=== PATIENT | male | born 1965 | race African-American/Black ===

== ENCOUNTER 2019-03-19 22:16 | Emergency (ER) | payer MEDICAID ==
[~2019-03-19] VITALS: Ht 180.3 cm; Wt 106.0 kg
[2019-03-19 23:05] VITALS: BP 158/105
== END 2019-03-20 03:38 | disposition home or self-care (01) ==
LOC: ER 22:28
DX: J20.9 Acute bronchitis, unspecified (principal)
CPT/HCPCS: 71045; 99283